=== PATIENT | female | born 1995 | race Caucasian/White ===

== ENCOUNTER 2018-07-25 15:50 | Emergency (ER) | payer OTHER ==
[~2018-07-25] VITALS: Ht 157.5 cm; Wt 51.7 kg
--- NOTE | 2018-07-25 16:00 | NUR ---
ED Nurse Note: patient walked into ED c/o laceration on the left index finger. patient reports that this happened this morning while she was cutting fruit. bandaid applied by PT, no active bleeding noted at this time.
[2018-07-25 16:11] VITALS: BP 129/75
[2018-07-25] MEDS ORDERED: Bacitracin Oint UD TOPIC ONE ×2 (16:15)
[2018-07-25] MEDS ORDERED: Lidocaine 1% MPF 10mg/ml 5ml INJ ONE (16:15)
--- NOTE | 2018-07-25 16:18 | Emergency Room Report ---
History of Present Illness General Chief Complaint: Laceration Source: Patient Present Illness HPI 22-year-old female presents to the emergency department complaining of 2 out of 10 in severity localized pain, bleeding and open wound to the dorsum of the left index finger since this morning. Patient states that she was cutting some fruit and she sliced down the top of her finger on accident. Patient reports moderate bleeding initially however she states it is now controlled. Patient denies taking blood thinning medications she states that she is up-to-date with tetanus vaccination and she denies wounds elsewhere. Patient denies intentional self infliction. Patient reports bending the finger exacerbates her pain and will cause more bleeding. No other aggravating or relieving factors otherwise. The patient is right-hand dominant. Allergies: Coded Allergies: No Known Allergies (Unverified , 07/25/18) Patient History Past Medical History: see triage record Past Surgical History: none Pertinent Family History: none Last Menstrual Period: JUN 2018 Immunizations: UTD Reviewed Nursing Documentation: PMH: Agreed; PSxH: Agreed Nursing Documentation-PMH Past Medical History: No Stated History Review of Systems All Other Systems: negative except mentioned in HPI Physical Exam Vital Signs Date Time Temp Pulse Resp B/P (MAP) Pulse Ox O2 Delivery O2 Flow Rate FiO2 07/25/18 15:54 99.0 76 16 129/75 96 Room Air Sp02 EP Interpretation: reviewed, normal General Appearance: no apparent distress, alert, GCS 15, non-toxic Head: normocephalic, atraumatic Eyes: bilateral eye normal inspection, bilateral eye PERRL ENT: hearing grossly normal, normal voice Neck: full range of motion Respiratory: lungs clear, normal breath sounds, speaking full sentences Cardiovascular #1: regular rate, rhythm, normal capillary refill Musculoskeletal: back normal, gait/station normal, normal range of motion, non- tender Neurologic: alert, oriented x3, responsive, motor strength/tone normal, sensory intact, speech normal, grossly normal Psychiatric: judgement/insight normal Skin: normal color, no rash, warm/dry, well hydrated, laceration - dorsal left index finger laceration approx 1 cm in length Lymphatic: no adenopathy Procedures Laceration/Wound Repair Laceration/Wound Repair : Consent: Verbal Wound Location: upper extremity - Left index Wound's Depth, Shape: flap Wound Length (cm): 1 Wound Explored: clean Irrigated w/ Saline (ccs): 300 Anesthesia: 1% Lidocaine Volume Anesthetic (ccs): 2 Wound Repaired With: sutures Suture Size/Type: 5:0, other - Ethilon Number of Sutures: 3 Layer Closure?: No Sterile Dressing Applied?: Yes Splint Applied?: Yes Sling Applied?: No Patient Tolerated: Well Complications: None Medical Decision Making PA Attestation Dr. Underwood is my supervising Physician whom patient management has been discussed with. Diagnostic Impression: Primary Impression: Laceration ER Course 22-year-old female presents to the emergency department complaining of 2 out of 10 in severity localized pain, bleeding and open wound to the dorsum of the left index finger since this morning. Patient states that she was cutting some fruit and she sliced down the top of her finger on accident. Patient reports moderate bleeding initially however she states it is now controlled. Patient denies taking blood thinning medications she states that she is up-to-date with tetanus vaccination and she denies wounds elsewhere. Patient denies intentional self infliction. Patient reports bending the finger exacerbates her pain and will cause more bleeding. No other aggravating or relieving factors otherwise. The patient is right-hand dominant. Ddx considered but are not limited to laceration, tendon injury, cellulitis, amputation Vital signs: are WNL, pt. is afebrile H&PE are most consistent with: dorsal left index finger laceration approx 1 cm in length ORDERS: none required at this time, the diagnosis is clinical ED INTERVENTIONS: -Tetanus vaccine was administered as pt. vaccination status was unknown. - The wound was copiously irrigated with normal saline, and explored for foreign body for which no FB was found. - pt. is anesthetized with 1%lidocaine - The wound was approximated and closed using [ ] interrupted Ethilon sutures. -Bacitracin and sterile dressing is applied. - Finger Splint applied to the [ ] by biomedical electronics technician. Pt. remains neurovascularly intact. Discussed with patient: That we make every effort to approximate the laceration as best as we can so that scarring will be as cosmetically pleasing as possible with our limited cosmetic skill set in the Emergency dept. Regardless of our best efforts there will be scarring after laceration repair. The extent of scarring is unknown at this time. DISCHARGE: At this time pt. is stable for d/c to home. Will provide printed patient care instructions, and any necessary prescriptions. Care plan and follow up instructions have been discussed with the patient prior to discharge. Last Vital Signs Date Time Temp Pulse Resp B/P (MAP) Pulse Ox O2 Delivery O2 Flow Rate FiO2 07/25/18 16:11 99.0 76 16 129/75 96 Room Air Disposition: HOME, SELF-CARE Condition: Stable Scripts Cephalexin* (KEFLEX*) 500 Mg Capsule 500 MG ORAL EVERY 12 HOURS for 7 Days, #14 CAP 0 Refills Prov: Zelda Santiago 07/25/18 Bacitracin/Polymyxin B Sulfate (BACITRACIN-POLYMYXIN OINTMENT) 28.35 Gm Oint...g. 1 APPLIC TP BID, #28.3 GM Prov: Zelda Santiago 07/25/18 Patient Instructions: Laceration Care, Adult Additional Instructions: Take medications as directed. SUTURES TO BE REMOVED IN 10 DAYS Follow up with a Primary Care Provider in 3-5 days, even if your symptoms have resolved. --Please review list of primary care clinics, if you do not already have a primary care provider Return sooner to ED if new symptoms occur, or current symptoms become worse. - Please note that this Emergency Department Report was dictated using [employer] attendant technology software, occasionally this can lead to erroneous entry secondary to interpretation by the dictation equipment. Zelda Santiago Jul 25, 2018 16:18
[2018-07-25] MEDS ORDERED: CEPHALEXIN500 MG ORAL (16:42)
[2018-07-25] MEDS ORDERED: BACITRACIN-P28.35 GM TP (16:42)
--- NOTE | 2018-07-25 17:10 | NUR ---
ED Nurse Note: pt cleared to d/c per ER provider order, pt discharge instruction provided w/prescription given. pt advised to follow up with pcp or return to ed if s/s worsen or new s/s develop, pt education done via discussion and hand out, patient verbalized understanding. ID wristband removed, pt vss, ambulatory w/ steady gait, respiration even and unlabored, airway intact, pt left with all belongings.
[2018-07-25 17:27] VITALS: BP 129/75
== END 2018-07-25 17:10 | disposition home or self-care (01) ==
LOC: EMR 17:02
DX: S61.211A Laceration without foreign body of left index finger without damage to nail, initial encounter (principal); W26.0XXA Contact with knife, initial encounter; Y92.89 Other specified places as the place of occurrence of the external cause
CPT/HCPCS: 29130; 99283